=== PATIENT | male | born 1950 | race Caucasian/White ===

== ENCOUNTER 2025-01-22 11:28 | Outpatient (AMB) | payer MEDICARE, SELFPAY ==
--- NOTE | 2025-01-22 11:30 | A.OFFVIS_ITS ---
Vital Signs 3 01/22/25 11:38 Height 6 ft Weight 226 lb 8 oz BMI 30.7 BP 163/77 H Blood Pressure Location Lt brachial Position Sitting Pulse 56 Intake Visit Reasons: Cyst on left arm Intake Note: Patient is seen in office for evaluation of a cyst on the left arm. Pt c/o: onset 6 months, denies increase in size, minimal pain when using the arm, denies discharge, redness, or swelling PCP:12/30/24 Business Analytics Specialist Required: No Accompanied by: Self / Same As Patient Allergies diazepam [From Valium] Allergy (Mild, Verified 01/22/25 11:36) Gastrointestinal Upset Medication List - Last Reconciled 01/22/25 by Dalton Frances MD atenolol 25 mg PO DAILY omeprazole 20 mg PO DAILY simvastatin 80 mg PO BEDTIME HPI Comments Details: 74-year-old male patient presenting with a soft tissue mass in the left forearm which he initially identified approximately 9 months ago. He denies any history of trauma to this location. 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 He underwent evaluation with an ultrasound at [facility] on 11/06/2024. This revealed an ill-defined ovoid isoechoic focus measuring 1 x 0.3 x 0.9 cm. It is difficult to discern whether it was within the subcutaneous fat or deep to it. There is underlying concavity of the musculature without definite intramuscular component. There is no internal vascularity or color Doppler microvascular flow imaging. The patient has requested excision of this left arm lesion. [facility] Medical History (Updated 01/22/25 @ 11:53 by Dalton Frances MD) Esophageal reflux Pure hypercholesterolemia Dilated cardiomyopathy Hypertension Surgical History (Updated 01/22/25 @ 11:37 by EDWIN Jang) Hx of hand surgery History of lumbosacral spine surgery Family History Family/Other Skin cancer Review of Systems Const All systems reviewed & are unremarkable except as noted in HPI and below Physical Exam Const General: cooperative and no acute distress Nutritional Appearance: well nourished Orientation/consciousness: patient oriented x3 Limitations: no limitations HEENT Head: Yes normocephalic and Yes atraumatic Ears: hearing grossly normal bilaterally Resp Effort & Inspection: normal respiratory effort, no audible wheezes, no cough and no respiratory distress Cardio Jugular venous distension: no JVD GI Inspection: Yes normal to inspection Skin Other: Warm, dry, no rash Neuro General: patient oriented x3 Extrem General: Yes no clubbing, cyanosis or edema Elbow/forearm/wrist images: 2 1. Site of palpable mass measuring approximately 1-2 cm. Not clearly in the subcutaneous tissue but most probably on the surface of the muscle. No overlying skin changes appreciated. Assessment & Plan Assessment & Plan (1) Mass of left upper extremity: Code(s): R22.32 - Localized swelling, mass and lump, left upper limb Category: Medical Plan 74-year-old male patient presenting with a soft tissue mass of the left arm which appears to be on the surface of the underlying muscle. The lesion was approximately 1-2 cm in diameter. Because of its location on the muscle, I recommended an excision as a short-stay surgery. After discussion of the procedure, risks, and alternatives, he consents to an excision of the left arm muscular mass. Coding Level of Care Code New Pt Level 4 (95562) Diagnoses Mass of left upper extremity R22.32
[2025-01-22 11:38] VITALS: BP 163/77; PULSE 56; BMI 30.7
--- OUTSIDE RECORDS SUMMARY | 2025-01-22 13:47 | XMS_ITS | Continuity of Care Document ---
Author Organization [facility] Medicine Address [address] [place] [address]- Care Team Providers Care Voucher Clerk Name Role Phone Yon HILLMAN, Curt Primary Care Physician Encounter [facility] [place] Date(s): 12/11/24 - 01/10/25 [facility] Medicine [address] [place] [address]- Encounter Type: Triage Allergies, Adverse Reactions, Alerts Substance Criticality Severity Reaction Reaction Severity Status Valium High criticality Severe Gastrointestinal upset Active Other Food Allergy High criticality Moderate [D]Abdominal cramps Aspartame Active Immunizations Given and Recorded Vaccine Date Status Refusal Reason influenza virus vaccine, inactivated 07/14/24 John rded influenza virus vaccine, inactivated 08/08/23 John rded influenza virus vaccine, inactivated 07/15/22 John rded influenza virus vaccine, inactivated 08/30/21 John rded influenza virus vaccine, inactivated 07/19/20 John rded influenza virus vaccine, inactivated 09/11/19 John rded influenza virus vaccine, inactivated 09/02/18 John rded SARS-CoV-2(COVID-19)mRNA-LNP vac([id number]) 08/08/23 Recorded [id number] bivalent booster vax 04/12/23 Recorded [id number] 12y+ bivalent booster vax 07/15/22 Recorded SARS-CoV-2 (COVID-19) mRNA-1273 vaccine 02/05/22 R ecorded SARS-CoV-2 (COVID-19) mRNA-1273 vaccine 09/21/21 R ecorded SARS-CoV-2 (COVID-19) mRNA-1273 vaccine 01/26/21 R ecorded SARS-CoV-2 (COVID-19) mRNA-1273 vaccine 12/29/20 R ecorded tetanus-diphtheria toxoids (Td) 06/08/21 Recorded tetanus-diphtheria toxoids (Td) 1 12/22/11 Recorde d Zoster Vaccine Live 09/27/20 Recorded zoster vaccine, inactivated 07/19/20 Recorded pneumococcal 23-valent vaccine 09/02/18 Recorded pneumococcal 13-valent vaccine 05/09/17 Recorded Influenza Virus Vaccine (oldterm) 2 12/05/13 Recor ded 1Result Comment: 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 Start Date: 11/14/21 Status: Ordered Repeat number: 1 omeprazole 20 mg oral enteric coated capsule 1 capsule, By Mouth, Daily, # 90 capsule, 1 Refills, Maintenance, 12/16/24 10:39:00 AM EST, [facility], 183, cm, 11/03/24 17:11:00 EST, Height Start Date: 12/16/24 Status: Ordered Quantity: 90.0 Unit: capsule Repeat number: 1 simvastatin 80 mg oral tablet 1 tablet, By Mouth, Daily at bedtime, # 90 tablet, 1 Refills, Maintenance, 10/20/24 2:20:00 PM EST,[facility], 183, cm, 07/24/24 10:49:00 EDT, Height Start Date: 10/20/24 Status: Ordered Quantity: 90.0 Unit: tablet Repeat number: 1 Problem List Condition Confirmation Course Effective Dates Status Health Status Informant Benign neoplasm of colon Confirmed Active Dilated cardiomyopathy Confirmed Active Skin lesion of left arm Confirmed Active Esophageal reflux finding Confirmed Active Essential hypertension Confirmed Active Hyperglycemia Confirmed Active Numbness of feet Confirmed Active Obese class I Confirmed Active Pure hypercholesterolemia Confirmed Active Social History Social History Type Response Smoking Status Former smoker, quit more than 30 days ago; Started at age: 17; Stopped at age: 27; entered on: 11/14/21 Sex Sex Representation Male (finding) Patient Care team information Care Team Personnel Name: Curt Marvin NP Position: [facility] PCO Associate Professional Member Role: PCP Address: [address] [place] [address] Telecom: Care Team Related Persons Name: RADAMES FUENTES Name: REFUSD, DAVID Insurance Providers Guarantor name: MARK FUENTES Health Plan Information #: 1 Payer: NA Member Number: NA Policy Number: NA Group Number: NA
== END 2025-01-22 12:03 | disposition home or self-care (01) ==
LOC: HO.HGS 11:29
PROVIDERS: PCP Nurse Practitioner Family; Visit Provider Surgery
DX: R22.32 Localized swelling, mass and lump, left upper limb (principal)
CPT/HCPCS: 99204

== ENCOUNTER → 2025-01-22 11:28 | Outpatient (BNVA) | payer MEDICARE, SELFPAY | PROVIDERS: PCP Nurse Practitioner Family; Visit Provider Surgery | DX: R22.32 Localized swelling, mass and lump, left upper limb (principal) | CPT/HCPCS: 99202 ==

== ENCOUNTER 2025-03-04 11:18 | Day surgery (SDC) | payer MEDICARE, SELFPAY ==
--- OUTSIDE RECORDS SUMMARY | 2025-02-03 15:15 | XMS_ITS | Continuity of Care Document ---
Author Organization [facility] Medicine Address [address] [place] [address]- Care Team Providers Care Director Of Web Marketing Name Role Phone Yon HILLMAN, Curt Primary Care Physician [phone] [place] [facility] 12/29/24 - 01/28/25 [facility] Medicine [address] [place] [phone] Encounter Type: Triage Allergies, Adverse Reactions, Alerts [...] virus vaccine, inactivated 09/02/18 John rded SARS-CoV-2(COVID-19)mRNA-LNP vac([id number]) 08/08/23 Recorded [id number] bivalent booster vax 04/12/23 Recorded [id number] 12y+ bivalent booster vax 07/15/22 Recorded SARS-CoV-2 [...] (oldterm) 2 12/05/13 Recor ded 1Result Comment: 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
[2025-03-02 13:33] VITALS: BMI 30.5
--- NOTE | 2025-03-03 10:19 | HO.ANESPROP2 ---
Documented by User: Veronica Michel NP 03/03/25 10:26 HPI - Anesthesia Eval Consult details Narrative: 74yo M for Left Excision Muscular Mass Forearm Optimized for surgery per PCP Follows [facility] for Dilated cardiomyopathy, PVC, htn/hld. Stable at 06/2024 office visit for 1 year f/u. Routine testing ordered - pt asymptomatic with regular exercise PMFSH Active Problems Active Problems: All Active Problems Mass of left upper extremity (Acute) Past Medical History Medical History (Updated 03/02/25 @ 14:23 by Narda Gómez RN) History of palpitations GERD (gastroesophageal reflux disease) Numbness Esophageal reflux Pure hypercholesterolemia Dilated cardiomyopathy Hypertension Family History Family History Family/Other Skin cancer Surgical History Surgical History (Updated 03/02/25 @ 13:32 by Narda Gómez RN) Hx of colonoscopy History of esophagogastroduodenoscopy (EGD) Hx of hand surgery History of lumbosacral spine surgery Social History Social History (Updated 03/02/25 @ 14:21 by Narda Gómez RN) Household Members: Family Housing: House Are you a primary career portals teacher to a significant other at home: No Do you presently have visiting nurse or other home services: No Patient Tobacco Use Status: Former Tobacco user Use of substances other than those prescribed or required for medical reasons: Yes Have you been hit, kicked, punched, or otherwise hurt by someone within the past year? If so, by whom?: No Are you DNR?: No Advance Directives: No (will bring dos) Advance Directives Information Provided: Yes Advance Directives on File: No Poor oral hygiene: No Meds Allergies Allergy/AdvReac Type Severity Reaction Status Date / Time diazepam [From Valium] Allergy Mild Gastrointestinal Verified 03/02/25 13:32 Upset, bradycardia Home Medications ?Medication ?Instructions ?Recorded ?Confirmed ?Last Taken ?Type atenolol 25 mg tablet 25 mg PO BEDTIME 01/22/25 03/02/25 Unknown History omeprazole 20 mg tablet,delayed 20 mg PO BEDTIME 01/22/25 03/02/25 Unknown History release simvastatin 80 mg tablet 80 mg PO BEDTIME 01/22/25 03/02/25 Unknown History Exam Height,Weight and Vital Signs: Height 6 ft Weight 102.058 kg Pertinent Lab Results Pertinent Lab Results: CBC and BMP 02/2025 [facility] from [facility] Narrative Narrative: EKG 02/2025 SB @ 59 LAD Septal infarct Stress ECHO 06/2024 No evidence of ischemia or infarct at an almost target HR Excellent functional capacity Previous tests per cardiac note: ECHO - mild dilated LV with EF 50-55% Nuc study - unremarkable with nml LV function Assessment and Plan Assessment Anesthesia Assessment: Chart Reviewed Documented by User: Shania Walker MD 03/04/25 12:28 [facility] Past Medical History Medical History (Updated 03/02/25 @ 14:23 by Narda Gómez RN) History of palpitations GERD (gastroesophageal reflux disease) Numbness Esophageal reflux Pure hypercholesterolemia Dilated cardiomyopathy Hypertension Family History Family History Family/Other Skin cancer Family history of problems with anesthesia: No Surgical History Surgical History (Updated 03/02/25 @ 13:32 by Narda Gómez RN) Hx of colonoscopy History of esophagogastroduodenoscopy (EGD) Hx of hand surgery History of lumbosacral spine surgery History of Problems with Anesthesia: No Social History Social History (Updated 03/02/25 @ 14:21 by Narda Gómez RN) Household Members: Family Housing: House Are you a primary career portals teacher to a significant other at home: No Do you presently have visiting nurse or other home services: No Patient Tobacco Use Status: Former Tobacco user Use of substances other than those prescribed or required for medical reasons: Yes Have you been hit, kicked, punched, or otherwise hurt by someone within the past year? If so, by whom?: No Are you DNR?: No Advance Directives: No (will bring dos) Advance Directives Information Provided: Yes Advance Directives on File: No Poor oral hygiene: No Meds Allergies Allergy/AdvReac Type Severity Reaction Status Date / Time diazepam [From Valium] Allergy Mild Gastrointestinal Verified 03/02/25 13:32 Upset, bradycardia Home Medications ?Medication ?Instructions ?Recorded ?Confirmed ?Last Taken ?Type atenolol 25 mg tablet 25 mg PO BEDTIME 01/22/25 03/02/25 Unknown History omeprazole 20 mg tablet,delayed 20 mg PO BEDTIME 01/22/25 03/02/25 Unknown History release simvastatin 80 mg tablet 80 mg PO BEDTIME 01/22/25 03/02/25 Unknown History Exam Airway Mallampati Class: II (caps through out) TM Dist: >3cm Neck ROM: Full Heart: rrr Lungs: cta Assessment and Plan Assessment Anesthesia Assessment: Anesthesia Plan Discussed Final Anesthetic Review Family History of Problems with Anesthesia: No History of Problems with Anesthesia: No NPO: Yes ASA Class: II Final Preanesthetic Review: No Changes in Pt Med Stat, Meds/Allgs Chart Reviewed and Consent Obtained/Reviewed Patient Risk: Low Procedure Risk: Low Anesthetic Plan Anesthetic Plan: MAC: Disposition: Standard PACU
[2025-03-04 11:52] VITALS: BMI 30.3
[2025-03-04 12:03] VITALS: BP 130/68; PULSE 57; RESP 16; TEMP 36.6; O2SAT 96
[2025-03-04] MEDS: Lactated Ringers 1,000 ML 100 ML IVCONT (12:13)
--- NOTE | 2025-03-04 13:36 | MHC.SHP ---
Pre-Procedural Eval Section A - 24 Hr Update-Section A only Date of Service: 03/04/25 The patient is an INPATIENT: No Changes since office visit: Yes Patient answered all questions; No Cold of Flu in the past 2 weeks, No New Medical Problems and No Changes in Medication The patient has been examined within 24 hours of the surgical procedure. The History & Physical has been completed within 30 days and I have reviewed it.: No Section B - Complete if H&P > 30 days Chief Complaint: Localized swelling, mass and lump, left upper limb Details of Present Illness: No change in his left arm symptoms Relevant Family History (Specify if Yes): No Relevant Social History: None Present Medications: see Short Stay Collaborative assessment Medical History: No relevant PMH History of Previous Operations: No relevant previous surgery Allergies: Allergies Allergy/AdvReac Type Severity Reaction Status Date / Time diazepam [From Valium] Allergy Mild Gastrointestinal Verified 03/02/25 13:32 Upset, bradycardia Review of Systems Sugical H&P ROS: Negative: Constitution, Cardiovascular, Respiratory, Neurological, Psychiatric, Hem-Onc, Allergic/Immunologic, Gastrointestinal, Genitourinary and Musculoskeletal Exam Surgical H&P Exam: Normal: Heart, Normal: Lungs, Normal: Extremities, Normal: Abdomen and Normal: Skin Plan Diagnosis/Plan: Unchanged I have reviewed the history and physical and performed a pertinent physical examination on my patient. No changes have occurred unless specified. Time Spent With Patient Time: Total time managing care of this patient today ____ minutes.
[2025-03-04 14:22] VITALS: BP 103/57; PULSE 52; RESP 16; TEMP 36.2; O2SAT 94
--- NOTE | 2025-03-04 14:22 | W.PM.OPN ---
Operative Note Operative Note Date of Service: 03/04/25 Narrative: Preoperative diagnosis: Muscular mass left forearm Postoperative diagnosis: Same Procedure: Excision of muscular mass left forearm Surgeon: Dalton Frances MD Plywood Patcher: Luiz Orellana PA-C Anesthesia:MAC Indications for procedure: 74-year-old male patient presenting with a tender mass located in the left forearm just below the antecubital fossa. Operative findings: Mass located on the fascia overlying muscle measuring approximately 1.5 cm. Specimen: Mass left forearm Estimated blood loss: 2 mL Complications: None Procedure details: Patient was brought to the OR and placed in a supine position. After administering light sedation the patient's left arm was prepped with ChloraPrep and draped in a sterile fashion. A surgical time-out was called the consent confirmed. Patient received preoperative antibiotics and Venodyne boots were in place. Local anesthesia was then infiltrated over the palpable lump. An incision was then made in the longitudinal fashion measuring approximately 3 cm. This was carried out through subcutaneous tissue up to the muscle fascia. This was incised with the Metzenbaum scissors and a excised from overlying the muscle. Hemostasis was assured using electrocautery. The lesion was passed off the table and sent to pathology for further examination. Fascia was then reapproximated using interrupted 3-0 Polysorb sutures. Skin was then closed using a running subcuticular 4-0 Polysorb suture. Steri-Strips, 2 x 2 gauze and Tegaderm were then applied. This was followed by 4 x 4 fluff gauze and a 4 in [place]. The patient tolerated the procedure well. Sponge, instrument, and needle counts reported as correct. The patient was transferred to PACU in stable condition.
[2025-03-04 14:37] VITALS: BP 117/65; PULSE 51; RESP 16; TEMP 36.4; O2SAT 97
== END 2025-03-04 15:23 | disposition home or self-care (01) ==
PROVIDERS: PCP Nurse Practitioner Family; Visit Provider Surgery
PROC: (CPT 25076; principal; 2025-03-04 13:30)
DX: R22.32 Localized swelling, mass and lump, left upper limb (principal); M79.632 Pain in left forearm; I10 Essential (primary) hypertension; I42.0 Dilated cardiomyopathy; E78.00 Pure hypercholesterolemia, unspecified; Z79.899 Other long term (current) drug therapy; Z88.8 Allergy status to other drugs, medicaments and biological substances; Z98.890 Other specified postprocedural states
CPT/HCPCS: 25076; 88304; 88307; J0690; J2003; J2250; J2704; J2795; J3010

== ENCOUNTER → 2025-03-04 11:18 | Outpatient (BNV) | payer MEDICARE, SELFPAY | PROVIDERS: PCP Nurse Practitioner Family; Visit Provider Surgery | DX: K56.609 Unspecified intestinal obstruction, unspecified as to partial versus complete obstruction (principal) | CPT/HCPCS: 25076; 99024 ==

== ENCOUNTER 2025-03-13 10:31 | Outpatient (AMB) | payer MEDICARE, SELFPAY ==
--- NOTE | 2025-03-13 10:34 | A.OFFVIS_ITS ---
Vital Signs 03/13/25 10:41 Height 6 ft Weight 231 lb BMI 31.3 BP 150/71 H Blood Pressure Location Lt brachial Position Sitting Pulse 52 Intake Visit Reasons: S/P exc. muscular mass Lt. forearm Intake Note: Patient is seen in office for post op assessment post excision of mass of the left forearm. Pt c/o: healing as expected Landscape Gardener Required: No Accompanied by: Self / Same As Patient Allergies diazepam [From Valium] Allergy (Mild, Verified 03/13/25 10:42) Gastrointestinal Upset, bradycardia HPI Comments Details: 74-year-old male patient returning 1 week following excision of a left forearm lesion located over the muscle fascia. 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 He tolerated the procedure well and feels much improved following excision of the lesion. Denies any bleeding or discharge from the incision. [facility] Medical History History of palpitations GERD (gastroesophageal reflux disease) Numbness Esophageal reflux Pure hypercholesterolemia Dilated cardiomyopathy Hypertension Surgical History History of excision of mass (03/04/25) Hx of colonoscopy History of esophagogastroduodenoscopy (EGD) Hx of hand surgery History of lumbosacral spine surgery Family History Family/Other Skin cancer Social History Household Members: Family Housing: House Are you a primary patient centered care specialist to a significant other at home: No Do you presently have visiting nurse or other home services: No Patient Tobacco Use Status: Former Tobacco user Physical Exam Vital Signs: Last Vital Signs Pulse 52 03/13/25 10:41 BP 150/71 H 03/13/25 10:41 BMI result Body Mass Index 31.3 Const General: no acute distress Nutritional Appearance: well nourished Resp Effort & Inspection: normal respiratory effort Extrem Other: Left forearm with a well-healed incision with intact Steri-Strips and no sussy homer or seroma appreciated. 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 He tolerated the procedure well and his wounds are healing nicely. He should follow up as needed. Coding Level of Care Code Global (17690) Diagnoses Hamartoma Q85.9
[2025-03-13 10:41] VITALS: BP 150/71; PULSE 52; BMI 31.3
--- OUTSIDE RECORDS SUMMARY | 2025-03-13 11:01 | XMS_ITS | Continuity of Care Document ---
Author Organization [facility] Medicine Address [address] [place] [address]- Care Team Providers Care Financial Services Sales Representative Name Role Phone Yon HILLMAN, Curt Primary Care Physician Encounter [facility] [place](s): 02/06/25 - 03/08/25 [facility] Family Medicine [address] [place] [phone]- Attending Physician: [facility] Admitting Physician: [facility] Referring Physician: [facility] Encounter Type: Triage Allergies, Adverse Reactions, Alerts [...] virus vaccine, inactivated 09/02/18 John rded SARS-CoV-2(COVID-19)mRNA-LNP vac([id number]) 08/08/23 Recorded [id number] bivalent booster vax 04/12/23 Recorded [id number] 12y+ bivalent booster vax 07/15/22 Recorded SARS-CoV-2 [...] (oldterm) 2 12/05/13 Recor ded 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: [employer] 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: 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: [employer] Medications atenolol 25 mg oral tablet 1, [...] on: 11/14/21 Sex Sex Representation Male (finding) Cardiology * Event Display: Cardiovascular Result Scanned Authored Date: Cardiology Consult note * Event Display: Consult Note Cardiology Authored Date: Patient Care team information Care Team Personnel Name: Curt Marvin NP Position: S PCO Associate Professional Member Role: PCP Address: [address] [place] [address] Telecom: Care Team Related Persons Name: RADAMES FUENTES Name: REFUSD, REFUSED Insurance Providers Guarantor name: MARK FUENTES Health Plan Information #: 1 Payer: [employer] PPO Member Number: NA Policy Number: NA Group Number: NA
--- OUTSIDE RECORDS SUMMARY | 2025-03-13 11:01 | XMS_ITS | Clinical Summary ---
Author Organization [facility] Address [address] [place] [address] Care Team Providers Care Straddle Truck Operator Name Role Phone Curt Marvin NP Primary Care Provider [phone] Encounters Date Type Department Care Team Description 03/02/2025 Telephone [facility] [address] [place] [address] Curt Marvin NP Medical REcords from Last 3 Months Medical History Medical History Date Comments Benign neoplasm of colon DX:Harjeet gn neoplasm of colon Class 1 obesity in adult DX:Clas s 1 obesity in adult Esophageal reflux DX:Esophageal reflux; COMMENT: FINDING Hyperglycemia DX:Hyperglycemia Family History Medical History Relation Name Comments Coronary artery disease Father Relation Name Status Comments Father Social History Tobacco Use Types Packs/Day Years Used Date Smoking Tobacco: Never Assessed Sex and Gender Information Value Date Recorded Sex Assigned at Not on file Legal Sex Male 3:42 PM EDT Gender Identity Not on file Sexual Orientation Not on file Obstetrics History Plan of Treatment Health Maintenance Due Date Last Done Comments DTaP,Tdap,and Td Vaccines (1 - Tdap) 1970 Pneumococcal Vaccine: 50+ Ye ars (1 of 1 - PCV) 2001 Zoster Vaccines (1 of 2) 2001 COVID-19 Vaccine (2023-2 5 season) 2024 Abdominal Aortic Aneurysm (A AA) Screen 08/14/2024 Cholesterol Screening (Lipid Panel) 08/14/2024 Colorectal Cancer Screening: Colonoscopy 08/14/2024 Depression Screening 08/14/2024 Falls Risk Assessment 08/14/2024 Hepatitis C Screening 08/14/2024 Social Influencers of Health Screening 08/14/2024 Hypertension/CHF/CAD Annual BMP Blood Test 08/19/2024 Influenza Vaccine (Season Ended) 2025 RSV Immunization Adult Patie nts (1 - 1-dose 75+ series) 2026 HIB Vaccines Aged Out No longer eligi ble based on patient's age to complete this topic HPV Vaccines Aged Out No longer eligi ble based on patient's age to complete this topic Hepatitis A Vaccines Aged Out No long er eligible based on patient's age to complete this topic Hepatitis B Vaccines Aged Out No long er eligible based on patient's age to complete this topic IPV Vaccines Aged Out No longer eligi ble based on patient's age to complete this topic MMR Vaccines Aged Out No longer eligi ble based on patient's age to complete this topic Meningococcal ACWY Vaccine Aged Out N o longer eligible based on patient's age to complete this topic Meningococcal B Vaccine Aged Out No l onger eligible based on patient's age to complete this topic RSV Immunization Patients Un leydi 20 months Aged Out No longer eligible b ased on patient's age to complete this topic Varicella Vaccines Aged Out No longer eligible based on patient's age to complete this topic Care Teams Straddle Truck Operator Relationship Specialty Start Date End Date Curt Marvin NP [address] [facility] [place] [address] PCP - General 06/03/24
== END 2025-03-13 11:12 | disposition home or self-care (01) ==
LOC: HO.HGS 10:32
PROVIDERS: PCP Nurse Practitioner Family; Visit Provider Surgery
DX: Q85.9 Phakomatosis, unspecified (principal)
CPT/HCPCS: 99024

== ENCOUNTER → 2025-03-13 10:31 | Outpatient (BNVA) | payer MEDICARE, SELFPAY | PROVIDERS: PCP Nurse Practitioner Family; Visit Provider Surgery | DX: Z09 Encounter for follow-up examination after completed treatment for conditions other than malignant neoplasm (principal); Z87.2 Personal history of diseases of the skin and subcutaneous tissue; Z98.890 Other specified postprocedural states | CPT/HCPCS: 99212 ==